=== PATIENT | female | born 1975 | race Caucasian/White ===

== ENCOUNTER → 2019-07-16 | Outpatient (CLI) | payer OTHER ==
[~2019-07-16] MED LIST: SERT50 PO
[2019-07-18 15:09] LABS: HPV 16 Negative (Negative); HPV 18 Negative (Negative); HPV OTHER HR TYPES Negative (Negative)
== END | disposition home or self-care (01) ==
LOC: LAB 18:09 → LAB SHORT 18:09
PROVIDERS: Family Medicine
DX: Z00.00 Encounter for general adult medical examination without abnormal findings (principal); Z12.4 Encounter for screening for malignant neoplasm of cervix
CPT/HCPCS: 87624; G0123

== ENCOUNTER 2024-05-13 07:13 | Day surgery (SDC) | payer OTHER ==
[~2024-05-13] VITALS: Ht 162.6 cm; Wt 58.8 kg
[2024-05-13] MEDS ORDERED: propofoL 50 ML IV ONE (07:22)
[2024-05-13] MEDS ORDERED: Lactated Ringer's 1,000 ML IV ONE ×2 (07:22→08:24)
[2024-05-13] MEDS ORDERED: ESCI10 (07:49)
[2024-05-13 10:09] VITALS: BP 103/67
--- NOTE | 2024-05-13 10:10 | NUR ---
05/13/24 1010 Selene Brown PER PT, BP BASELINE IS AROUND HIGH 90S/60S. PT STATED 120S/80S WAS "BECAUSE I WAS PRETTY ANXIOUS COMING IN". PT STATED NO S/S OF LIGHT HEADED OR DIZZINESS.
== END 2024-05-13 10:13 | disposition home or self-care (01) ==
LOC: ORSCSDS 07:13
PROVIDERS: Internal Medicine Gastroenterology
PROC: 0DBM8ZX Excision of Descending Colon, Via Natural or Artificial Opening Endoscopic, Diagnostic (ICD-10-PCS; principal; 2024-05-13 08:45)
DX: Z12.11 Encounter for screening for malignant neoplasm of colon (principal); K63.5 Polyp of colon; F17.290 Nicotine dependence, other tobacco product, uncomplicated
CPT/HCPCS: 88305; J2704; J7120

== ENCOUNTER → 2024-09-22 | Outpatient (CLI) | payer OTHER ==
[~2024-09-22] MED LIST changes: +ESCI10
[2024-09-23 19:36] LABS: Bacterial Vaginosis PCR Negative (NEGATIVE); Candida Group, PCR NOT DETECTED (NOT DETECT); Candida glabrata-krusei, PCR NOT DETECTED (NOT DETECT)
[2024-09-23 20:06] LABS: Chlamydia Trachomatis Vaginal NOT DETECTED (NOT DETECT); Neisseria Gonorrhoea Vaginal NOT DETECTED (NOT DETECT)
== END ==
LOC: LAB SHORT 09:00 → LAB 09:00
DX: Z12.4 Encounter for screening for malignant neoplasm of cervix (principal); N88.8 Other specified noninflammatory disorders of cervix uteri; F52.6 Dyspareunia not due to a substance or known physiological condition
CPT/HCPCS: 81515; 87491; 87591; 87624; G0145